=== PATIENT | female | born 2000 | race American Indian/Alaskan Native ===

== ENCOUNTER 2021-07-31 11:13 | Outpatient (CLI) | payer SELFPAY ==
[2021-07-31] MEDS ORDERED: LACTATED RINGERS 1,000 ML IV ONE (11:49)
[2021-07-31] MEDS ORDERED: dexAMETHasone 4 MG/ML VIAL IV ONE (12:45)
[2021-07-31] MEDS ORDERED: ONDANSETRON 4 MG/2 ML INJ IV ONE (12:48)
[2021-07-31] MEDS ORDERED: METOCLOPRAMIDE 10 MG/2 ML INJ IV ONE (12:48)
[2021-07-31 13:13] LABS: Bilirubin,Urine NEG (Negative); Blood,Urine NEG (Negative); Color,Urine Yellow (Yellow); Mucus,Urine 3+ /HPF; Urobilinogen,Urine < 2.0 mg/dL (<2.0)
[2021-07-31 13:59] VITALS: BP 110/59
== END 2021-07-31 14:44 | disposition home or self-care (01) ==
LOC: TRG 11:13 → APU 11:15 → TRG 14:44
PROVIDERS: ATTEND Obstetrics & Gynecology
DX: O21.2 Late vomiting of pregnancy (principal); O26.892 Other specified pregnancy related conditions, second trimester; R10.9 Unspecified abdominal pain; Z3A.25 25 weeks gestation of pregnancy
CPT/HCPCS: 59025; 81001; 96365; 96368; J1100; J2405; J2765; 96374